=== PATIENT | female | born 1945 | race Caucasian/White ===

== ENCOUNTER 2017-03-02 15:09 | Emergency (ER) | payer OTHER ==
[~2017-03-02] VITALS: Ht 165.1 cm; Wt 63.6 kg
[~2017-03-02 15:09] MED LIST: ATEN50TA PO
[2017-03-02 15:11] VITALS: BP 180/86; PULSE 103; RESP 16; TEMP 98.4; O2SAT 96
--- NOTE | 2017-03-02 22:50 | PD ---
Physical Exam Date Seen by Provider: Mar 02, 2017 Time Seen by Provider: 16:52 Narrative 71-year-old female presents to the emergency department for psychiatric evaluation. She states she is feeling depressed. She drank 4 beers today. Patient started smoking alcohol on her breath. Data Data Last Documented VS Vital Signs Date Time Temp Pulse Resp B/P (MAP) Pulse Ox O2 Delivery O2 Flow Rate FiO2 03/02/17 16:52 03/02/17 15:11 98.4 103 16 96 Orders Orders Complete Blood Count With Diff (03/02/17 15:29) Comprehensive Metabolic Panel (03/02/17 15:29) Psych Screen (03/02/17 15:29) Drug Screen, Random Urine (03/02/17 15:29) Alcohol (Ethanol) (03/02/17 15:29) Salicylates (Aspirin) (03/02/17 15:29) Tylenol (Acetaminophen) (03/02/17 15:29) Urinalysis - C+S If Indicated (03/02/17 15:29) [facility] Supervised Visit with SOUMYA: No Narrative Course 71-year-old female presents to the emergency Department voluntarily for psychiatric evaluation. Workup was initiated in triage. She was initially seen in triage. Patient left AGAINST MEDICAL ADVICE before being moved to medical bed. Diagnosis Primary Impression: Left against medical advice Additional Impression: Psychiatric complaint Disposition: 07 AGAINST MEDICAL ADVICE Kalpana Schmitz Mar 02, 2017 22:50
== END 2017-03-02 16:58 | disposition left against medical advice (07) ==
LOC: NED 15:09
DX: F99 Mental disorder, not otherwise specified (principal)
CPT/HCPCS: 99281

== ENCOUNTER 2017-04-17 17:36 | Emergency (ER) | payer OTHER ==
[2017-04-17 17:50] VITALS: BP 145/70; PULSE 75; RESP 16; TEMP 98; O2SAT 97
[2017-04-17] MEDS ORDERED: VITA100021 SL (18:09)
[2017-04-17] MEDS ORDERED: POTA8TAB PO (18:09)
[2017-04-17] MEDS ORDERED: METO-309 PO (18:09)
--- NOTE | 2017-04-17 18:27 | PD ---
HPI Chief Complaint: Depression Time Seen by Provider: 18:20 Travel History International Travel<30 days: No Contact w/Intl Traveler<30days: No Traveled to known affect area: No History of Present Illness HPI 71-year-old female with history of depression, who was seen previously 1 month ago he left prior to being seen by psychiatry, presents again with depression and suicidal ideation without specific plan. 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 She states he makes her very anxious and depressed. Patient did see her primary care physician after her last visit here and was prescribed some antidepressants which she said "did not work" and she flushed them down the toilet. Patient states that she has chronic anxiety due to her situation. Patient states no medical issues other than chronic hypertension and history of palpitations in the past. Patient currently has no medical complaints. She has no known drug allergies. PFSH Past Medical History Anxiety: Yes (pt reported "cutting") Depression: Yes Cardiovascular Problems: Yes (palpitations, heart valvle problems) Tetanus Vaccination: Unknown Influenza Vaccination: No ?: Not Past Surgical History Surgical History: No Previous Surgery Social History Alcohol Use: Yes (6 beers/day) Tobacco Use: No Substance Use: No Allergies-Medications (Allergen,Severity, Reaction): Coded Allergies: No Known Allergies (Unverified Adverse Reaction, Unknown, 04/17/17) Reported Meds & Prescriptions Reported Meds & Active Scripts Active Reported Potassium Chloride ER (Potassium Chloride) 8 Meq Tab 8 Meq PO DAILY Vitamin B-12 (Cyanocobalamin) 1,000 Mcg Subl 1,000 Mcg SL DAILY Lopressor (Metoprolol Tartrate) 50 Mg Tab 25 Mg PO BID Review of Systems Except as stated in HPI: all other systems reviewed are Neg General / Constitutional: No: Fever Eyes: No: Visual changes HENT: No: Headaches Cardiovascular: No: Chest Pain or Discomfort Respiratory: No: Shortness of Breath Gastrointestinal: No: Abdominal Pain Genitourinary: No: Dysuria Musculoskeletal: No: Pain Skin: No Rash Neurologic: No: Weakness Psychiatric: Positive: Suicidal Ideations, No: Depression, Disorder of Thought , Mood Disorder, Substance Abuse, Homicidal Ideation Endocrine: No: Polydipsia Hematologic/Lymphatic: No: Easy Bruising Physical Exam Narrative GENERAL: Appears in no acute distress. SKIN: Warm and dry. HEAD: Atraumatic. Normocephalic. EYES: Pupils equal and round. No scleral icterus. No injection or drainage. ENT: No nasal bleeding or discharge. Mucous membranes pink and moist. NECK: Trachea midline. No JVD. CARDIOVASCULAR: Regular rate and rhythm. RESPIRATORY: No accessory muscle use. Clear to auscultation. Breath sounds equal bilaterally. GASTROINTESTINAL: Abdomen soft, non-tender, nondistended. Hepatic and splenic margins not palpable. MUSCULOSKELETAL: Extremities without clubbing, cyanosis, or edema. No obvious deformities. NEUROLOGICAL: Awake and alert. No obvious cranial nerve deficits. Motor grossly within normal limits. Five out of 5 muscle strength in the arms and legs. Normal speech. PSYCHIATRIC: Appropriate mood and affect; insight and judgment normal. Data Data Last Documented VS Vital Signs Date Time Temp Pulse Resp B/P (MAP) Pulse Ox O2 Delivery O2 Flow Rate FiO2 04/17/17 17:50 98.0 75 16 145/70 (95) 97 Orders Orders Complete Blood Count With Diff (04/17/17 17:52) Thyroid Stimulating Hormone (04/17/17 17:52) Basic Metabolic Panel (Bmp) (04/17/17 17:52) Urinalysis - C+S If Indicated (04/17/17 17:52) Psych Screen (04/17/17 17:52) Drug Screen, Random Urine (04/17/17 17:52) Alcohol (Ethanol) (04/17/17 17:52) Diet Regular Basic (04/17/17 Dinner) [facility] Medical Decision Making Medical Screen Exam Complete: Yes Emergency Medical Condition: Yes Differential Diagnosis Anxiety. Depression. Suicidal ideation. No definitive plan. Narrative Course Psychiatric labs per protocol are ordered. 1900 hrs., care of the patient will be turned over to Jasmin Felix NP. Psychiatric screen ordered pending medical clearance. Condition: Stable Biju Nunes Apr 17, 2017 18:27
[2017-04-17 19:11] LABS: AUTOMATED NEUTROPHIL # 3.5 TH/MM3 (1.8-7.7); BASOPHIL # 0.1 TH/MM3 (0-0.2); BASOPHIL % 1.2 % (0.0-2.0); EOSINOPHIL # 0.1 TH/MM3 (0-0.4); EOSINOPHIL % 2.4 % (0.0-4.0); HEMATOCRIT 39.2 % (35.0-46.0); HEMOGLOBIN 13.6 GM/DL (11.6-15.3); LYMPH % 25.4 % (9.0-44.0); LYMPHOCYTE # 1.4 TH/MM3 (1.0-4.8); MEAN CELL VOLUME 94.3 FL (80.0-100.0); MEAN CORPUSCULAR HEMOGLOBIN 32.7 PG (27.0-34.0); MEAN CORPUSCULAR HGB CONC 34.6 % (32.0-36.0); MEAN PLATELET VOLUME 6.8 FL (7.0-11.0); MONO % 7.5 % (0.0-8.0); MONOCYTE # 0.4 TH/MM3 (0-0.9); NEUT % 63.5 % (16.0-70.0); PLATELET COUNT 279 TH/MM3 (150-450); RED BLOOD COUNT 4.15 MIL/MM3 (4.00-5.30); RED CELL DISTRIBUTION WIDTH 13.9 % (11.6-17.2); WHITE BLOOD COUNT 5.5 TH/MM3 (4.0-11.0)
[2017-04-17 19:15] LABS: BILIRUBIN, URINE NEG (NEG); BLOOD, URINE NEG (NEG); GLUCOSE,URINE NEG (NEG); KETONE, URINE NEG (NEG); NITRITE,URINE NEG (NEG); PH, URINE 5.5 (5.0-8.5); SQUAMOUS EPITHELIAL CELL URINE <1 /hpf (0-5); URINE COLOR LIGHT-YELLOW (YELLW/STRAW); URINE LEUKOCYTE ESTERASE SMALL (NEG)
[2017-04-17 19:21] LABS: BICARBONATE 32.2 MEQ/L (21.0-32.0); CALCIUM 9.1 MG/DL (8.5-10.1); CREATININE 0.69 MG/DL (0.50-1.00)
--- NOTE | 2017-04-17 19:39 | PD ---
Physical Exam Date Seen by Provider: Apr 17, 2017 Time Seen by Provider: 19:37 Narrative For full history and physical examination please see previous providers note. Patient was signed out to me at change of shift. Labs are pending at that time. Data Data Last Documented VS Vital Signs Date Time Temp Pulse Resp B/P (MAP) Pulse Ox O2 Delivery O2 Flow Rate FiO2 04/17/17 17:50 98.0 75 16 145/70 (95) 97 Orders Orders Complete Blood Count With Diff (04/17/17 17:52) Thyroid Stimulating Hormone (04/17/17 17:52) Basic Metabolic Panel (Bmp) (04/17/17 17:52) Urinalysis - C+S If Indicated (04/17/17 17:52) Psych Screen (04/17/17 17:52) Drug Screen, Random Urine (04/17/17 17:52) Alcohol (Ethanol) (04/17/17 17:52) Diet Regular Basic (04/17/17 Dinner) Labs Laboratory Tests Test 04/17/17 18:20 White Blood Count 5.5 TH/MM3 Red Blood Count 4.15 MIL/MM3 Hemoglobin 13.6 GM/DL Hematocrit 39.2 % Mean Corpuscular Volume 94.3 FL Mean Corpuscular Hemoglobin 32.7 PG Mean Corpuscular Hemoglobin Concent 34.6 % Red Cell Distribution Width 13.9 % Platelet Count 279 TH/MM3 Mean Platelet Volume 6.8 FL Neutrophils (%) (Auto) 63.5 % Lymphocytes (%) (Auto) 25.4 % Monocytes (%) (Auto) 7.5 % Eosinophils (%) (Auto) 2.4 % Basophils (%) (Auto) 1.2 % Neutrophils # (Auto) 3.5 TH/MM3 Lymphocytes # (Auto) 1.4 TH/MM3 Monocytes # (Auto) 0.4 TH/MM3 Eosinophils # (Auto) 0.1 TH/MM3 Basophils # (Auto) 0.1 TH/MM3 CBC Comment DIFF FINAL Differential Comment Urine Color LIGHT-YELLOW Urine Turbidity CLEAR Urine pH 5.5 Urine Specific [place] 1.002 Urine Protein NEG mg/dL Urine Glucose (UA) NEG mg/dL Urine Ketones NEG mg/dL Urine Occult Blood NEG Urine Nitrite NEG Urine Bilirubin NEG Urine Urobilinogen LESS THAN 2.0 MG/DL Urine Leukocyte Esterase SMALL Urine RBC LESS THAN 1 /hpf Urine WBC LESS THAN 1 /hpf Urine Squamous Epithelial Cells <1 /hpf Microscopic Urinalysis Comment CULT NOT INDICATED Blood Urea Nitrogen 8 MG/DL Creatinine 0.69 MG/DL Random Glucose 104 MG/DL Calcium Level 9.1 MG/DL Sodium Level 133 MEQ/L Potassium Level 3.4 MEQ/L Chloride Level 97 MEQ/L Carbon Dioxide Level 32.2 MEQ/L Anion Gap 4 MEQ/L Estimat Glomerular Filtration Rate 84 ML/MIN Thyroid Stimulating Hormone 3rd Gen 3.390 uIU/ML Urine Opiates Screen NEG Urine Barbiturates Screen NEG Urine Amphetamines Screen NEG Urine Benzodiazepines Screen NEG Urine Cocaine Screen NEG Urine Cannabinoids Screen NEG Ethyl Alcohol Level 227 MG/DL [facility] Medical Record Reviewed: Yes Supervised Visit with SOUMYA: No Interpretation(s) Laboratory Tests Test 04/17/17 18:20 White Blood Count 5.5 TH/MM3 Red Blood Count 4.15 MIL/MM3 Hemoglobin 13.6 GM/DL Hematocrit 39.2 % Mean Corpuscular Volume 94.3 FL Mean Corpuscular Hemoglobin 32.7 PG Mean Corpuscular Hemoglobin Concent 34.6 % Red Cell Distribution Width 13.9 % Platelet Count 279 TH/MM3 Mean Platelet Volume 6.8 FL Neutrophils (%) (Auto) 63.5 % Lymphocytes (%) (Auto) 25.4 % Monocytes (%) (Auto) 7.5 % Eosinophils (%) (Auto) 2.4 % Basophils (%) (Auto) 1.2 % Neutrophils # (Auto) 3.5 TH/MM3 Lymphocytes # (Auto) 1.4 TH/MM3 Monocytes # (Auto) 0.4 TH/MM3 Eosinophils # (Auto) 0.1 TH/MM3 Basophils # (Auto) 0.1 TH/MM3 CBC Comment DIFF FINAL Differential Comment Urine Color LIGHT-YELLOW Urine Turbidity CLEAR Urine pH 5.5 Urine Specific [place] 1.002 Urine Protein NEG mg/dL Urine Glucose (UA) NEG mg/dL Urine Ketones NEG mg/dL Urine Occult Blood NEG Urine Nitrite NEG Urine Bilirubin NEG Urine Urobilinogen LESS THAN 2.0 MG/DL Urine Leukocyte Esterase SMALL Urine RBC LESS THAN 1 /hpf Urine WBC LESS THAN 1 /hpf Urine Squamous Epithelial Cells <1 /hpf Microscopic Urinalysis Comment CULT NOT INDICATED Blood Urea Nitrogen 8 MG/DL Creatinine 0.69 MG/DL Random Glucose 104 MG/DL Calcium Level 9.1 MG/DL Sodium Level 133 MEQ/L Potassium Level 3.4 MEQ/L Chloride Level 97 MEQ/L Carbon Dioxide Level 32.2 MEQ/L Anion Gap 4 MEQ/L Estimat Glomerular Filtration Rate 84 ML/MIN Thyroid Stimulating Hormone 3rd Gen 3.390 uIU/ML Urine Opiates Screen NEG Urine Barbiturates Screen NEG Urine Amphetamines Screen NEG Urine Benzodiazepines Screen NEG Urine Cocaine Screen NEG Urine Cannabinoids Screen NEG Ethyl Alcohol Level 227 MG/DL Vital Signs Date Time Temp Pulse Resp B/P (MAP) Pulse Ox O2 Delivery O2 Flow Rate FiO2 04/17/17 17:50 98.0 75 16 145/70 (95) 97 Narrative Course Patient is a 71-year-old female presenting voluntarily to the emergency department for psychiatric evaluation. Patient's vital signs are stable. CBC with no acute abnormalities, chemistry with potassium 3.4, TSH 3.39, urine drug screen is negative. Alcohol level is 227, urinalysis is unremarkable. Patient will be given oral potassium replacement. She is medically cleared for psychiatric evaluation. Diagnosis Primary Impression: Medical clearance for psychiatric admission Additional Impressions: Acute alcohol intoxication Qualified Codes: F10.929 - Alcohol use, unspecified with intoxication, unspecified Hypokalemia Condition: Stable Jasmin Lobo Apr 17, 2017 19:39
[2017-04-17] MEDS ORDERED: POTASSIUM CHLORIDE 10 MEQ CONTROLLED RELEASE TAB PO ONE (19:45)
[2017-04-18] VITALS (7 sets, daily range): BP systolic 154–200; BP diastolic 80–98; PULSE 73–78; RESP 16–20; TEMP 98.2–98.7; O2SAT 96–99
[2017-04-18] MEDS ORDERED: LORazepam 1 MG TAB PO ONE (07:45)
[2017-04-18] MEDS ORDERED: METOPROLOL TARTRATE 25 MG TAB PO ONE ×2 (07:45→19:15)
[2017-04-18] MEDS ORDERED: chlordiazePOXIDE 25 MG CAP PO ONE ×2 (07:45→12:15)
[2017-04-18] MEDS ORDERED: POTASSIUM CHLORIDE 10 MEQ CONTROLLED RELEASE TAB PO SCH (09:00)
[2017-04-18] MEDS ORDERED: IBUPROFEN 600 MG TAB PO ONE (12:15)
--- NOTE | 2017-04-18 16:42 | PD ---
History of Present Illness Chief Complaint: Moderate depressive disorder, alcohol abuse, anxiety Time Seen by Provider: 12:30 Travel History International Travel<30 Days: No Contact w/Intl Traveler<30days: No Known affected area: No Legal Status Legal Status: Voluntary History of Present Illness: Patient is a 71-year-old single, white, female who presents voluntarily to the emergency department for "extreme depression anxiety" for the past 2-3 months. She reports having a chronic alcohol problem which has resulted in approximately 4 DUIs in the past. She states that she gets anxious, self medicates with alcohol, and then ends up depressed. She reports that her depression has been increasing steadily over the past few months due to her living situation. Reviewed electronic medical record and labs. Discussed case with staff. Patient was evaluated and room D 41. Patient is awake, alert, and oriented. Her speech is clear, logical, and organized. She remains tearful throughout the interview. She appears sad, depressed, and anxious. This is the second time she is presented to the emergency room for this complaint. The first time she left without being seen. She denies suicidal ideation stating, "I would never kill myself, I just wish I was because of my living situation." Additionally, she denies homicidal ideation, auditory and visual hallucinations. She does not appear delusional at this time. She reports that she stays in a house with a friend and her 45-year-old son who is unemployed. According the patient, she is unable to move out of the living situation due to her fixed income. She states that the gentleman she lives with his controlling and mean. She reports a history of cutting behavior, the most recent episode was to her left wrist yesterday. I observed superficial approximately 4 cm cut to her left wrist. Patient advises that she was recently placed on antidepressants by her primary care physician. However, she "flushed them down the toilet because I could not handle the side effects". Patient's blood alcohol level was 227 at 6:20 PM last night. She admits to drinking alcohol daily and states that she drinks 6-8 beers per day. She does report a history of depression and states that she was previously medicated for it "many years ago". [facility] Past Medical History Narrative Medical Medically cleared by ED staff. Anxiety: Yes (pt reported "cutting") Depression: Yes Cardiovascular Problems: Yes (palpitations, heart valvle problems) Tetanus Vaccination: Unknown Influenza Vaccination: No ?: Not Past Surgical History Surgical History: No Previous Surgery Psychiatric History Psychiatric History Nothing currently. Previous history of outpatient treatment at various times. Hx Psychiatric Treatment: HX OF OUTPATIENT TREATMENT IN SEVERAL DIFFERENT STATES History of Inpatient Treatment: No Guns or firearms in home: No Social History Lives with her friend and her 45-year-old unemployed son. Hx Alcohol Use: Yes (6 beers/day) Hx Tobacco Use: No Hx Substance Use: Yes (DAILY ALCOHOL) Substance Use Type: Alcohol Hx of Substance Use Treatment: No Allergies-Medications (Allergen,Severity, Reaction): Coded Allergies: No Known Allergies (Unverified Adverse Reaction, Unknown, 04/17/17) Reported Meds & Prescriptions Reported Meds & Active Scripts Active Reported Potassium Chloride ER (Potassium Chloride) 8 Meq Tab 8 Meq PO DAILY Vitamin B-12 (Cyanocobalamin) 1,000 Mcg Subl 1,000 Mcg SL DAILY Lopressor (Metoprolol Tartrate) 50 Mg Tab 25 Mg PO BID Mental Status Examination Appearance: Appropriate, Well dressed/well groomed Consciousness: Alert Orientation: x4 Motor Activity: Normal gait Speech: Unremarkable Language: Adequate Fund of Knowledge: Adequate Attention and Concentration: Adequate Memory: Unremarkable Mood: Sad (Tearful), Anxious Affect: Sad, Anxious Thought Process & Associations: Intact Thought Content: Appropriate Hallucination Type: None Delusion Type: None Suicidal Ideation: No Suicidal Plan: No Suicidal Intention: No Homicidal Ideation: No Homicidal Plan: No Homicidal Intention: No Insight: Fair Judgment: Poor (Continues to abuse alcohol on a daily basis) MDM Medical Decision Making Medical Record Reviewed: Yes Assessment/Plan 71-year-old single, female who presented voluntarily to the emergency department with complaints of depression anxiety for the past 2-3 months. This is the patient's first visit to this facility although she reports being treated at various times in her life outpatient for depression. She is alert and oriented, well-groomed, and has clear speech which is organized and logical. Patient reports increasing depression anxiety for the past 2-3 months. She states that she "becomes anxious and then drinks to feel better but in the alcohol makes me feel more depressed". Patient advises she has been drinking for approximately 20 years on a daily basis and has had multiple DUIs in the past. She feels that her latest episode of depression as a result of untenable living circumstances. She denies suicidal ideation however, she states "I wish I was because my living situation". She denies previous suicide attempts however, she does admit to a history of cutting with the most recent episode being last night. An approximately 4 cm superficial laceration is observed on her left wrist. Patient was presented to the [facility] to make use of their dual treatment program. She was accepted and will be transferred there approximately 10 AM tomorrow morning. Orders Orders Complete Blood Count With Diff (04/17/17 17:52) Thyroid Stimulating Hormone (04/17/17 17:52) Basic Metabolic Panel (Bmp) (04/17/17 17:52) Urinalysis - C+S If Indicated (04/17/17 17:52) Psych Screen (04/17/17 17:52) Drug Screen, Random Urine (04/17/17 17:52) Alcohol (Ethanol) (04/17/17 17:52) Diet Regular Basic (04/17/17 Dinner) Potassium Chloride (Kcl) (04/17/17 19:45) Chlordiazepoxide (Librium) (04/18/17 07:45) Lorazepam (Ativan) (04/18/17 07:45) Metoprolol Tartrate (Lopressor) (04/18/17 07:45) Potassium Chloride (Kcl) (04/18/17 09:00) Chlordiazepoxide (Librium) (04/18/17 12:15) Ibuprofen (Motrin) (04/18/17 12:15) Results Vital Signs Date Time Temp Pulse Resp B/P (MAP) Pulse Ox O2 Delivery O2 Flow Rate FiO2 04/18/17 13:34 75 20 200/98 (132) 97 Room Air 04/18/17 11:11 98.2 75 16 179/81 (113) 97 Room Air 04/18/17 10:10 78 16 154/80 (104) 97 Room Air 04/18/17 07:42 98.3 73 20 184/90 (121) 96 Room Air 04/17/17 17:50 98.0 75 16 145/70 (95) 97 Laboratory Tests Test 04/17/17 18:20 White Blood Count 5.5 Red Blood Count 4.15 Hemoglobin 13.6 Hematocrit 39.2 Mean Corpuscular Volume 94.3 Mean Corpuscular Hemoglobin 32.7 Mean Corpuscular Hemoglobin Concent 34.6 Red Cell Distribution Width 13.9 Platelet Count 279 Mean Platelet Volume 6.8 Neutrophils (%) (Auto) 63.5 Lymphocytes (%) (Auto) 25.4 Monocytes (%) (Auto) 7.5 Eosinophils (%) (Auto) 2.4 Basophils (%) (Auto) 1.2 Neutrophils # (Auto) 3.5 Lymphocytes # (Auto) 1.4 Monocytes # (Auto) 0.4 Eosinophils # (Auto) 0.1 Basophils # (Auto) 0.1 CBC Comment DIFF FINAL Differential Comment Urine Color LIGHT-YELLOW Urine Turbidity CLEAR Urine pH 5.5 Urine Specific [place] 1.002 Urine Protein NEG Urine Glucose (UA) NEG Urine Ketones NEG Urine Occult Blood NEG Urine Nitrite NEG Urine Bilirubin NEG Urine Urobilinogen LESS THAN 2.0 Urine Leukocyte Esterase SMALL Urine RBC LESS THAN 1 Urine WBC LESS THAN 1 Urine Squamous Epithelial Cells <1 Microscopic Urinalysis Comment CULT NOT INDICATED Blood Urea Nitrogen 8 Creatinine 0.69 Random Glucose 104 Calcium Level 9.1 Sodium Level 133 Potassium Level 3.4 Chloride Level 97 Carbon Dioxide Level 32.2 Anion Gap 4 Estimat Glomerular Filtration Rate 84 Thyroid Stimulating Hormone 3rd Gen 3.390 Urine Opiates Screen NEG Urine Barbiturates Screen NEG Urine Amphetamines Screen NEG Urine Benzodiazepines Screen NEG Urine Cocaine Screen NEG Urine Cannabinoids Screen NEG Ethyl Alcohol Level 227 Diagnosis Primary Impression: Moderate major depression Additional Impressions: Chronic alcohol abuse Anxiety Psychiatrically Cleared: No (Patient to be transferred to the [facility] for further evaluation and treatment.) Condition: Stable Problem Qualifiers Zayda Dodge Apr 18, 2017 16:42
[2017-04-18] MEDS ORDERED: LORazepam 1 MG TAB PO PRN (18:45)
[2017-04-18] MEDS ORDERED: LORazepam 2 MG TAB PO PRN (18:45)
[2017-04-18] MEDS ORDERED: LORazepam 2 MG/ML VIAL IV PUSH PRN ×4 (18:45)
[2017-04-18] MEDS ORDERED: FLUMAZENIL 0.5 MG/5 ML VIAL IV PUSH PRN (18:45)
[2017-04-19 02:00] VITALS: BP 163/90; PULSE 67; RESP 18; TEMP 98; O2SAT 98
[2017-04-19 06:10] VITALS: BP 168/87; PULSE 71; RESP 18; TEMP 98.6; O2SAT 98
[2017-04-19] MEDS ORDERED: METOPROLOL TARTRATE 25 MG TAB PO ONE (07:30)
--- NOTE | 2017-04-19 10:03 | PD ---
Physical Exam Date Seen by Provider: Apr 19, 2017 Time Seen by Provider: 10:02 Narrative 71-year-old female previously medically cleared for psychiatric evaluation has been seen by psychiatric staff and is going to be transferred to the [facility], for inpatient rehab and psychiatric services. Patient remains medically stable at this time. Data Data Last Documented VS Vital Signs Date Time Temp Pulse Resp B/P (MAP) Pulse Ox O2 Delivery O2 Flow Rate FiO2 04/19/17 06:10 98.6 71 18 168/87 (114) 98 Room Air Orders Orders Complete Blood Count With Diff (04/17/17 17:52) Thyroid Stimulating Hormone (04/17/17 17:52) Basic Metabolic Panel (Bmp) (04/17/17 17:52) Urinalysis - C+S If Indicated (04/17/17 17:52) Psych Screen (04/17/17 17:52) Drug Screen, Random Urine (04/17/17 17:52) Alcohol (Ethanol) (04/17/17 17:52) Diet Regular Basic (04/17/17 Dinner) Potassium Chloride (Kcl) (04/17/17 19:45) Chlordiazepoxide (Librium) (04/18/17 07:45) Lorazepam (Ativan) (04/18/17 07:45) Metoprolol Tartrate (Lopressor) (04/18/17 07:45) Potassium Chloride (Kcl) (04/18/17 09:00) Chlordiazepoxide (Librium) (04/18/17 12:15) Ibuprofen (Motrin) (04/18/17 12:15) Diet Regular Basic (04/18/17 Dinner) Alcohol Withdrawal Asmt-Ciwa [id number] (04/18/17 18:33) Flumazenil Inj (Romazicon Inj) (04/18/17 18:45) Lorazepam (Ativan) (04/18/17 18:45) Lorazepam Inj (Ativan Inj) (04/18/17 18:45) Lorazepam (Ativan) (04/18/17 18:45) Lorazepam Inj (Ativan Inj) (04/18/17 18:45) Lorazepam Inj (Ativan Inj) (04/18/17 18:45) Lorazepam Inj (Ativan Inj) (04/18/17 18:45) Metoprolol Tartrate (Lopressor) (04/18/17 19:15) Metoprolol Tartrate (Lopressor) (04/19/17 07:30) Diet Heart Healthy (04/19/17 Breakfast) Diet Heart Healthy (04/19/17 Lunch) Labs Laboratory Tests Test 04/17/17 18:20 White Blood Count 5.5 TH/MM3 Red Blood Count 4.15 MIL/MM3 Hemoglobin 13.6 GM/DL Hematocrit 39.2 % Mean Corpuscular Volume 94.3 FL Mean Corpuscular Hemoglobin 32.7 PG Mean Corpuscular Hemoglobin Concent 34.6 % Red Cell Distribution Width 13.9 % Platelet Count 279 TH/MM3 Mean Platelet Volume 6.8 FL Neutrophils (%) (Auto) 63.5 % Lymphocytes (%) (Auto) 25.4 % Monocytes (%) (Auto) 7.5 % Eosinophils (%) (Auto) 2.4 % Basophils (%) (Auto) 1.2 % Neutrophils # (Auto) 3.5 TH/MM3 Lymphocytes # (Auto) 1.4 TH/MM3 Monocytes # (Auto) 0.4 TH/MM3 Eosinophils # (Auto) 0.1 TH/MM3 Basophils # (Auto) 0.1 TH/MM3 CBC Comment DIFF FINAL Differential Comment Urine Color LIGHT-YELLOW Urine Turbidity CLEAR Urine pH 5.5 Urine Specific [place] 1.002 Urine Protein NEG mg/dL Urine Glucose (UA) NEG mg/dL Urine Ketones NEG mg/dL Urine Occult Blood NEG Urine Nitrite NEG Urine Bilirubin NEG Urine Urobilinogen LESS THAN 2.0 MG/DL Urine Leukocyte Esterase SMALL Urine RBC LESS THAN 1 /hpf Urine WBC LESS THAN 1 /hpf Urine Squamous Epithelial Cells <1 /hpf Microscopic Urinalysis Comment CULT NOT INDICATED Blood Urea Nitrogen 8 MG/DL Creatinine 0.69 MG/DL Random Glucose 104 MG/DL Calcium Level 9.1 MG/DL Sodium Level 133 MEQ/L Potassium Level 3.4 MEQ/L Chloride Level 97 MEQ/L Carbon Dioxide Level 32.2 MEQ/L Anion Gap 4 MEQ/L Estimat Glomerular Filtration Rate 84 ML/MIN Thyroid Stimulating Hormone 3rd Gen 3.390 uIU/ML Urine Opiates Screen NEG Urine Barbiturates Screen NEG Urine Amphetamines Screen NEG Urine Benzodiazepines Screen NEG Urine Cocaine Screen NEG Urine Cannabinoids Screen NEG Ethyl Alcohol Level 227 MG/DL [facility] Medical Record Reviewed: Yes Supervised Visit with SOUMYA: Yes Narrative Course 71-year-old female previously medically cleared for psychiatric evaluation has been seen by psychiatric staff and is going to be transferred to the [facility], for inpatient rehab and psychiatric services. Patient remains medically stable at this time. Diagnosis Primary Impression: Moderate major depression Additional Impressions: Anxiety Chronic alcohol abuse Patient Instructions: General Instructions, Depression (ED), Alcohol Dependence (ED) Departure Forms: Tests/Procedures Disposition: 70 TRANSFER TO OTHER FACILITY Condition: Stable Biju Nunes Apr 19, 2017 10:03
== END 2017-04-19 11:01 | disposition short-term general hospital (02) ==
LOC: NEPD 17:36 → NEPJ 04-19 11:01
DX: F10.129 Alcohol abuse with intoxication, unspecified (principal); Y90.7 Blood alcohol level of 200-239 mg/100 ml; E87.6 Hypokalemia; F32.9 Major depressive disorder, single episode, unspecified; F41.9 Anxiety disorder, unspecified; I10 Essential (primary) hypertension; Z91.5 Personal history of self-harm
CPT/HCPCS: 80048; 80307; 81001; 84443; 85025; 99285